=== PATIENT | male | born 1985 | race African-American/Black ===

== ENCOUNTER 2017-03-11 05:08 | Emergency (ER) | payer OTHER ==
[2017-03-11 05:23] LABS: BASOPHILS 0.1 % (0-2); EOSINOPHILS 1.8 % (0-7); HEMATOCRIT 42.2 % (42.0-54.0); HEMOGLOBIN 14.2 g/dL (13.5-17.5); IMMATURE GRANULOCYTES 0.1 % (0-5); LYMPHOCYTES 39.4 % (15-50); MCH 26.9 pg (26.0-34.0); MCHC 33.6 g/dL (31.0-37.0); MCV 79.9 fL (80.0-100.0); MEAN PLATELET VOLUME 9.8 fL (7.4-10.4); MONOCYTES 7.3 % (2-11); NEUTROPHILS 51.3 % (40-80); PLATELET COUNT 203 10x3/uL (130-400); RBC 5.28 10x6/uL (4.20-6.10); RDW 14.8 % (11.5-14.5); WBC 7.6 10x3/uL (4.8-10.8)
[2017-03-11 05:40] LABS: ALBUMIN 3.8 g/dL (3.4-5.0); ALKALINE PHOSPHATASE 73 U/L (46-116); ALT (SGPT) 21 U/L (10-68); BILIRUBIN - TOTAL 0.31 mg/dL (0.2-1.3); CALC OSMOLALITY 283 mosm/kg (275-300); CALCIUM 8.6 mg/dL (8.5-10.1); CARBON DIOXIDE 24.7 mmol/L (21.0-32.0); CHLORIDE - SERUM 106 mmol/L (98-107); CREATININE - SERUM 1.1 mg/dL (0.6-1.3); GLUCOSE 131 mg/dL (74-106); POTASSIUM - SERUM 3.6 mmol/L (3.5-5.1); PROTEIN - SERUM 7.7 g/dL (6.4-8.2); SODIUM 142 mmol/L (136-145); UREA NITROGEN 9 mg/dL (7-18); eGFR NON AFRICAN AMERICAN 84 mL/min (90-120)
[2017-03-11 05:43] LABS: APTT 27.7 SECONDS (22.8-39.4); INR 1.02 (0.85-1.17); PROTIME 13.3 SECONDS (11.6-15.0)
== END 2017-03-11 08:30 | disposition home or self-care (01) ==
LOC: D.ER 05:08
PROVIDERS: Family Medicine
DX: S81.802A Unspecified open wound, left lower leg, initial encounter (principal); X95.9XXA Assault by unspecified firearm discharge, initial encounter; Y93.89 Activity, other specified; Y92.830 Public park as the place of occurrence of the external cause; F17.200 Nicotine dependence, unspecified, uncomplicated

== ENCOUNTER 2020-03-22 16:14 | Emergency (ER) | payer OTHER ==
[~2020-03-22] VITALS: Ht 177.8 cm; Wt 95.5 kg
[2020-03-22 16:17] VITALS: BP 143/106; Ht 177.8 cm; Wt 95.5 kg
[2020-03-22] MEDS ORDERED: ERYTHROMYCIN OPT1 GM EACH EYE (17:24)
[2020-03-22] MEDS ORDERED: ULTRAM50 MG PO (17:24)
== END 2020-03-22 17:49 | disposition home or self-care (01) ==
LOC: D.ER 16:14
DX: H10.9 Unspecified conjunctivitis (principal); S05.01XA Injury of conjunctiva and corneal abrasion without foreign body, right eye, initial encounter